=== PATIENT | male | born 1950 | race Caucasian/White ===

== ENCOUNTER 2018-08-11 12:01 | Day surgery (SDC) | payer MEDICARE, BC ==
[~2018-08-11 12:01] MED LIST: PROPOFOL 200 MG/20 ML VIAL As Ordered
[2018-08-11] MEDS ORDERED: LIDOCAINE 2% INJ 100 MG/5 ML SDV (FOR ANES.) As Ordered (12:30)
[2018-08-11] MEDS ORDERED: NS 1,000 ML IV (13:00)
== END 2018-08-11 14:33 | disposition home or self-care (01) ==
LOC: M OPP 12:01
DX: Z12.11 Encounter for screening for malignant neoplasm of colon (principal); Z86.010 Personal history of colon polyps; K64.0 First degree hemorrhoids; K57.30 Diverticulosis of large intestine without perforation or abscess without bleeding; R00.2 Palpitations; I10 Essential (primary) hypertension; E78.5 Hyperlipidemia, unspecified; E03.9 Hypothyroidism, unspecified; R06.83 Snoring; Z79.899 Other long term (current) drug therapy; Z87.891 Personal history of nicotine dependence
CPT/HCPCS: G0105

== ENCOUNTER → 2021-09-28 | Outpatient (REF) ==
[~2021-09-28] MED LIST changes: +CARDIA XT PO; +LEVO50TA5 PO; +PRAV40TA2 PO; -PROPOFOL 200 MG/20 ML VIAL As Ordered; +RAMI1CAP26 PO
== END ==
LOC: M LABSMTC 09:50
PROVIDERS: ATTEND Pediatrics
DX: Z11.52 Encounter for screening for COVID-19 (principal)

== ENCOUNTER 2025-01-11 06:42 | Day surgery (SDC) | payer MEDICARE ==
[~2025-01-11] VITALS: Ht 182.9 cm; Wt 91.8 kg
[~2025-01-11 06:42] MED LIST changes: +DILT120C89 PO; +LEVO75TA4 PO; +RAMI10CA64 PO; -RAMI1CAP26 PO
[2025-01-11] MEDS ORDERED: propofoL 200 MG/20 ML VIAL As Ordered ONE (07:37)
[2025-01-11] MEDS ORDERED: LIDOCAINE 2% 100MG/5ML SDV (FOR ANES.) As Ordered ONE (07:37)
[2025-01-11 08:19] VITALS: TEMP 97.9
[2025-01-11 08:43] VITALS: BP 110/80; O2SAT 94
== END 2025-01-11 08:54 | disposition home or self-care (01) ==
LOC: M OPP 06:42
PROVIDERS: ATTEND Internal Medicine Gastroenterology
DX: K57.30 Diverticulosis of large intestine without perforation or abscess without bleeding (principal); K64.0 First degree hemorrhoids; Z86.0100 Personal history of colon polyps, unspecified; Z79.899 Other long term (current) drug therapy